=== PATIENT | female | born 2000 | race Caucasian/White ===

== ENCOUNTER 2021-06-08 14:08 | Outpatient (CLI) | payer BC, SELFPAY ==
[2021-06-08 19:09] LABS: Hemoglobin 15.5 g/dL (12.0-15.0); Mean Corpuscular HGB Conc 35.2 g/dl (32-36); Mean Corpuscular Hemoglobin 30.8 pg (26-34); Mean Corpuscular Volume 87.3 fl (80-100); Platelet Count Result 237 k/mm3 (150-375); Red Blood Count 5.04 M/mm3 (4.2-5.4); Red Cell Distribution Width 12.6 % (11.5-14.5); White Blood Count 5.3 K/mm3 (4.5-10.0)
[2021-06-08 19:19] LABS: Alanine Aminotransferase 20 U/L (4-35); Albumin Level 5.2 g/dL (3.5-5.1); Alkaline Phosphatase 69 U/L (38-126); Anion Gap 13 mmol/L (8-16); Aspartate Amino Transferase 28 U/L (14-36); Bilirubin,Total 0.9 mg/dL (0.2-1.3); Blood Urea Nitrogen 10 mg/dL (7-17); Calcium 9.4 mg/dL (8.4-10.2); Carbon Dioxide 23 mmol/L (22-30); Chloride 106 mmol/L (98-107); Cholesterol 158 mg/dL (0-200); Estimated Glomerular Filt Rate > 60; Glucose 100 mg/dL (65-110); HDL Direct 50 mg/dL; Potassium 3.7 mmol/L (3.4-5.0); Sodium 142 mmol/L (137-145); Triglycerides 145 mg/dL (<150)
[2021-06-08 19:30] LABS: LDL Cholesterol Direct 82 mg/dL
== END 2021-06-08 14:09 | disposition home or self-care (01) ==
LOC: ANHBWCLAB 14:10
PROVIDERS: PCP Family Medicine; Visit Provider Family Medicine
DX: K21.9 Gastro-esophageal reflux disease without esophagitis (principal); K59.00 Constipation, unspecified
CPT/HCPCS: 36415; 80053; 80061; 82607; 85027

== ENCOUNTER 2021-08-04 14:11 | Outpatient (CLI) | payer BC, SELFPAY ==
[2021-08-04 19:11] LABS: Basophils Percent Auto 0.5 % (0.2-1.2); Eosinophils Absolute Auto 0.1 K/mm3 (0-0.3); Eosinophils Percent Auto 0.8 % (0-4.4); Hematocrit 41.6 % (37.0-47.0); Hemoglobin 14.4 g/dL (12.0-15.0); Immature Granulocyte Absolute 0.02 K/mm3 (0.00-0.031); Immature Granulocyte Percent A 0.3 % (0-0.5); Lymphocytes Absolute Auto 1.95 K/mm3 (0.9-3.2); Lymphocytes Percent Auto 31.1 % (18.3-44.2); Mean Corpuscular HGB Conc 34.6 g/dl (32-36); Mean Corpuscular Hemoglobin 30.2 pg (26-34); Mean Corpuscular Volume 87.2 fl (80-100); Mean Platelet Volume 9.8 fl (7.4-10.4); Monocytes Absolute Auto 0.4 K/mm3 (0.1-0.6); Neutrophils Absolute Auto 3.8 K/mm3 (1.3-6.7); Neutrophils Percent Auto 60.3 % (45.5-73.1); Platelet Count Result 262 k/mm3 (150-375); Red Blood Count 4.77 M/mm3 (4.2-5.4); Red Cell Distribution Width 12.4 % (11.5-14.5); White Blood Count 6.3 K/mm3 (4.5-10.0)
[2021-08-06 04:06] LABS: H pylori Ag Stool Not Detected (Not Detected)
== END 2021-08-04 14:12 | disposition home or self-care (01) ==
LOC: ANHBWCLAB 14:12
PROVIDERS: PCP Family Medicine; Visit Provider Family Medicine
DX: F41.9 Anxiety disorder, unspecified (principal); K59.00 Constipation, unspecified; K21.9 Gastro-esophageal reflux disease without esophagitis; D75.1 Secondary polycythemia
CPT/HCPCS: 36415; 84443; 85025; 87338

== ENCOUNTER 2021-08-18 00:07 | Day surgery (SDC) | payer BC, SELFPAY ==
[2021-07-30 13:03] VITALS: BMI 23.4
--- NOTE | 2021-08-11 10:10 | PC.NURSE ---
Patient called spoke with mother Anastasiya and Informed of the new guidelines regarding screening for covid and illness prior to coming in for procedure and if necessary pt will be rapid swabbed on arrival to Endoscopy. Instructed to call prior to preparation of colonoscopy if having any symptoms or any member of household having a positive test in past 2 weeks. Anastasiya verbalizes understanding and will give patient Rhece the message.
[2021-08-18 06:18] VITALS: BP 134/90; PULSE 113; RESP 20; TEMP 36.4; O2SAT 99
[2021-08-18] MEDS: LACTATED RINGERS 1,000 ML 150 ML IV CONT (07:07)
--- NOTE | 2021-08-18 07:19 | P.PNAN_ITS ---
Anes - Initial Pre Proc Eval Procedure: Operation Date: 08/18/21 07:30 Proposed Procedures p Esophagogastroduodenoscopy & Colonoscopy - Tom Duran MD Date/Time: 08/18/21 07:19 Surgeon: Tom Duran MD Pre Op Diagnosis: GERD, rectal bleeding, constipation Patient Data Age: 20 Gender: F Height: 1.6 m Weight: 60.7 kg Last Vital Signs Temp 97.5 F L 08/18/21 06:18 Pulse 113 H 08/18/21 06:18 Resp 20 08/18/21 06:18 BP 134/90 08/18/21 06:18 Pulse Ox 99 08/18/21 06:18 Allergies Allergy/AdvReac Type Severity Reaction Status Date / Time No Known Allergies Allergy Verified 08/18/21 06:17 Home Medications Medication Instructions Recorded Confirmed Type sertraline 100 mg tablet 100 mg PO DAILY #90 tablet 07/06/21 08/10/21 Rx lactobacillus combination no.8 cell 07/30/21 08/10/21 History [Adult Probiotic] omeprazole 20 mg PO DAILY 07/30/21 08/10/21 History psyllium [Metamucil] 1 packet PO DAILY 07/30/21 08/10/21 History aluminum chloride in alcohol 6.25 1 applic TOPICAL QHS #60 ml 08/10/21 08/10/21 Rx % topical solution Patient hx anesthesia problems: none Family hx anesthesia problems: none Results Review: All pre-operative results and documents have been reviewed as part of the pre-operative evaluation. [facility] Past Medical History Medical History (Updated 06/09/21 @ 12:31 by Anup Headley MD) Constipation GERD (gastroesophageal reflux disease) Headache Social History Social History Alcohol intake: never Substance use: never Living arrangements: with family Spiritual care concerns: No Anes - Eval Final PreProcedure Day of Procedure 08/18/21 07:19 Patient weight: normal Heart: regular rate and rhythm Lungs: clear to auscultation Airway: Mallampati scale class II Neurological: alert and oriented Last oral intake: >/= 8 hours ASA classification: II Emergent: no Anesthetic plan: proceed Anesthesia type and monitoring: general GIVS and standard monitoring Results Review: All pre-operative results and documents have been reviewed as part of the pre-operative evaluation. Informed Consent: The patient's anesthetic plan and its attendant risks and benefits were discussed with the patient/family/POA. Questions were solicited and answers provided to the satisfaction of the patient/family/POA.
--- NOTE | 2021-08-18 07:28 | PM.HPGS ---
History of Present Illness History of Present Illness Consent: Risks, benefits, and alternatives have been discussed and questions answered. Patient agrees to proceed with procedure. Chief complaint: GERD, rectal bleeding, constipation Narrative: Filiberto Childress is a 20 year old female with chronic constipation, few times noted blood after wiping. Also GERD but resolved after using omeprazole, never had scopes. Review of Systems Constitutional: Constitutional: Denies headache(s) and Denies weakness Eyes: Eyes: Denies blurry vision ENT: Reports Normal hearing present, Denies headache(s) and Denies neck pain Cardiovascular: Cardiovascular: Denies chest pain and Denies dyspnea Respiratory: Respiratory: Denies dyspnea Gastrointestinal: Gastrointestinal: Reports no additional gastrointestinal complaints Genitourinary: Genitourinary: Denies dysuria Musculoskeletal: Musculoskeletal: Denies neck pain Integumentary/Breasts: Skin/Breast: Denies dry skin Neurologic: Reports Normal hearing present, Denies headache(s) and Denies weakness Psychiatric: Psychiatric: Denies anxiety Endocrine: Endocrine: Denies change in body appearance Hematologic/Lymphatic: Hematologic/Lymphatic: Denies easy bleeding Allergic/Immunologic: Allergic/Immunologic: Denies urticaria PMFSH Past Medical History Medical History (Updated 06/09/21 @ 12:31 by Anup Headley MD) Constipation GERD (gastroesophageal reflux disease) Headache Social History Social History Alcohol intake: never Substance use: never Living arrangements: with family Spiritual care concerns: No Meds Home Medications and Allergies Home Medications Medication Instructions Recorded Confirmed Type sertraline 100 mg tablet 100 mg PO DAILY #90 tablet 07/06/21 08/10/21 Rx lactobacillus combination no.8 cell 07/30/21 08/10/21 History [Adult Probiotic] omeprazole 20 mg PO DAILY 07/30/21 08/10/21 History psyllium [Metamucil] 1 packet PO DAILY 07/30/21 08/10/21 History aluminum chloride in alcohol 6.25 1 applic TOPICAL QHS #60 ml 08/10/21 08/10/21 Rx % topical solution Allergies Allergy/AdvReac Type Severity Reaction Status Date / Time No Known Allergies Allergy Verified 08/18/21 06:17 Vital Signs Vital Signs - 24 hr 08/18/21 06:18 Temperature 97.5 F L Pulse Rate 113 H Respiratory Rate 20 Blood Pressure 134/90 Pulse Oximetry 99 Exam Const: General: comfortable and no acute distress HENMT: General nose exam: Normal nares present Eyes: General: appearance normal, both eyes and all related structures Neck: Neck: no JVD Resp: Auscultation: clear to auscultation bilaterally Cardio: Rate: regular rate Rhythm: regular rhythm GI: Inspection: non-distended GI Palp: Yes Soft to palpation Skin: General skin exam: normal color Neuro: General: gait normal Speech: normal speech Extrem: General: normal to inspection Psych: Mental Status: mental status grossly normal Assessment and Plan Assessment and plan (1) GERD (gastroesophageal reflux disease): Code(s): K21.9 - Gastro-esophageal reflux disease without esophagitis Status: Acute Assessment and Plan: egd with bx, better with ppi (2) Constipation: Code(s): K59.00 - Constipation, unspecified Status: Acute Assessment and Plan: colonoscopy
--- NOTE | 2021-08-18 07:44 | SUR.OPER ---
egd ended at 737, colonoscopy start time 742.
[2021-08-18 07:57] VITALS: BP 100/72; PULSE 84; RESP 21; O2SAT 100
[2021-08-18 08:07] VITALS: BP 105/69; PULSE 89; RESP 20; O2SAT 100
[2021-08-18 08:17] VITALS: BP 120/79; PULSE 90; RESP 20; O2SAT 100
== END 2021-08-18 08:30 | disposition home or self-care (01) ==
PROVIDERS: PCP Family Medicine; Visit Provider Internal Medicine Gastroenterology
PROC: 0DJ08ZZ Inspection of Upper Intestinal Tract, Via Natural or Artificial Opening Endoscopic (ICD-10-PCS; CPT 43235; principal; 2021-08-18 07:30)
DX: K59.00 Constipation, unspecified (principal); K92.1 Melena; K63.89 Other specified diseases of intestine; K64.8 Other hemorrhoids; K21.9 Gastro-esophageal reflux disease without esophagitis
CPT/HCPCS: 45378; 43239; 88305; J2001; J2704; J7120

== ENCOUNTER 2021-11-10 12:02 | Outpatient (CLI) | payer BC, SELFPAY | END 2021-11-10 12:03 | disposition home or self-care (01) | LOC: ANHBWCLAB 12:03 | PROVIDERS: PCP Family Medicine; Visit Provider Family Medicine | DX: R63.5 Abnormal weight gain (principal) | CPT/HCPCS: 36415; 84443 ==

== ENCOUNTER 2023-09-11 15:09 | Emergency (ER) | payer OTHER, SELFPAY ==
[2023-09-11 15:20] VITALS: BP 124/88; PULSE 102; RESP 16; TEMP 37.3; O2SAT 99
--- NOTE | 2023-09-11 15:22 | ED.URI ---
HPI - URI/Sore Throat General Chief Complaint: Upper Respiratory Infection Stated Complaint: throat/aches Time Seen by Provider: 09/11/23 15:22 History of Present Illness HPI Narrative: 22-year-old female presented for complaint of sore throat, headache, and body aches. Onset yesterday. She also states she feels like wires are crossed in my body resulting in mild lightheadedness lasting about 1-2 hours at a time since yesterday. denies cough, shortness breath, wheezing, nausea, vomiting, fevers or chills. Related Data Allergies Allergy/AdvReac Type Severity Reaction Status Date / Time No Known Allergies Allergy Verified 03/14/23 16:00 Review of Systems Review of Systems: CONSTITUTIONAL: Denies body aches, fever, chills, or sweats. EYES: Denies visual changes, redness, or discharge. ENT: Reports sore throat Denies rhinorrhea, congestion, or otalgia. CARDIOVASCULAR: Denies chest pain, palpitations, or edema. RESPIRATORY: Denies dyspnea. GASTROINTESTINAL: Denies abdominal pain, nausea, vomiting, or diarrhea. SKIN: Denies rash, itching, or wounds. MUSCULOSKELETAL: Denies back pain, joint pain, or myalgia. NEUROLOGIC: Denies headache PMFSH Past Medical History Medical History Constipation GERD (gastroesophageal reflux disease) Headache Social History Social History Smoking status: Never smoker Alcohol intake: never Substance use: never Lack of Transportation: No Lack of Food: Never True Current Housing: I Have Housing Concerned About Future Housing: No Difficulty Paying Gas/Electric Bills: No Difficulty Paying for Meds: No Currently Unemployed: No Education: Bachelor's Degree Difficulty w/ Childcare or Family Care: No Living arrangements: with family Spiritual care concerns: No Exam Narrative: GENERAL: mildly ill-appearing, no acute distress. EYES: conjunctivae clear ENT: Mucous membranes moist. TMs pearly luna with normal light reflex bilaterally; no tragal tenderness. Oropharynx erythematous without lesions. Tonsils absent. No drooling, no hoarseness, no trismus, uvula midline. No tripod positioning, hot potato voice, or soft palate swelling. NECK: Supple. No lymphadenopathy CHEST: Clear to auscultation, breath sounds equal. No respiratory distress, speaks in full sentences. HEART: Regular rate and rhythm. No murmur heard. SKIN: Warm, dry, no rash. NEURO: Alert and oriented x3. Course Course Emergency Course: Patient is aware of diagnosis, understands and agrees to treatment plan. Anticipatory guidance given. Patient agrees to follow-up as directed and is aware of reasons to seek care at the emergency department. Portions of this record may have been created with voice recognition software Level of Care: Express Care Visit Vital Signs Vital signs: Vital Signs Temperature 99.2 F 09/11/23 15:20 Pulse Rate 102 H 09/11/23 15:20 Respiratory Rate 16 09/11/23 15:20 Blood Pressure 124/88 09/11/23 15:20 Pulse Oximetry 99 09/11/23 15:20 Oxygen Delivery Room Air 09/11/23 15:20 Temperature 99.2 F 09/11/23 15:20 Pulse Rate 102 H 09/11/23 15:20 Respiratory Rate 16 09/11/23 15:20 Blood Pressure 124/88 09/11/23 15:20 Pulse Oximetry 99 09/11/23 15:20 Oxygen Delivery Room Air 09/11/23 15:20 MDM - URI/Sore Throat MDM Narrative Medical decision making narrative: results of POS COVID, neg flu, and strep reviewed with pt. Advise supportive treatments. Patient is appropriate for outpatient treatment and follow-up. Differential Diagnosis Differential diagnosis: Likely upper respiratory infection, viral infection and pharyngitis Discharge Plan Discharge Clinical Impression: COVID-19 Patient Disposition: Home, Self-Care Condition: Stable Instructions: Antibiotic Form, COVID-19 (Coronavirus Disease
== END 2023-09-11 15:53 | disposition home or self-care (01) ==
PROVIDERS: Emergency Provider Nurse Practitioner Family; PCP Family Medicine
DX: U07.1 COVID-19 (principal); K21.9 Gastro-esophageal reflux disease without esophagitis
CPT/HCPCS: 87081; 87426; 87804; 87880; 99213; G0463

== ENCOUNTER 2023-11-21 09:07 | Outpatient (CLI) | payer OTHER, SELFPAY ==
[2023-11-21 20:18] LABS: Hemoglobin 13.4 g/dL (12.0-15.0); Mean Corpuscular HGB Conc 32.7 g/dl (32-36); Mean Corpuscular Hemoglobin 29.4 pg (26-34); Mean Corpuscular Volume 89.9 fl (80-100); Platelet Count Result 235 k/mm3 (150-375); Red Blood Count 4.56 M/mm3 (4.2-5.4); White Blood Count 4.9 K/mm3 (4.5-10.0)
[2023-11-21 20:22] LABS: Alanine Aminotransferase 10 U/L (6-35); Albumin Level 4.8 g/dL (3.5-5.1); Alkaline Phosphatase 58 U/L (38-126); Anion Gap 12 mmol/L (4-12); Aspartate Amino Transferase 31 U/L (14-36); Bilirubin,Total 0.4 mg/dL (0.2-1.3); Blood Urea Nitrogen 8 mg/dL (7-17); Calcium 9.3 mg/dL (8.4-10.2); Carbon Dioxide 25 mmol/L (22-30); Chloride 101 mmol/L (98-107); Cholesterol 236 mg/dL (0-200); Estimated Glomerular Filt Rate > 60; Glucose 86 mg/dL (65-110); HDL Direct 47 mg/dL; Sodium 138 mmol/L (137-145); Triglycerides 160 mg/dL (<150)
[2023-11-21 20:33] LABS: LDL Cholesterol Direct 142 mg/dL
== END 2023-11-21 09:08 | disposition home or self-care (01) ==
PROVIDERS: PCP Nurse Practitioner Adult Health; Visit Provider Nurse Practitioner Adult Health
DX: Z00.00 Encounter for general adult medical examination without abnormal findings (principal)
CPT/HCPCS: 36415; 80053; 80061; 84443; 85027

== ENCOUNTER 2024-12-17 15:39 | Outpatient (CLI) | payer OTHER, SELFPAY ==
--- OUTSIDE RECORDS SUMMARY | 2024-12-17 15:42 | XMS_ITS | Clinical Summary ---
Author Organization [facility] [place] [address] [facility] Address [address] [place] [address] Care Team Providers Care Puppet Maker Name Role Phone Radha Galeano MD Primary Care Pro vider Allergies No known active allergies Medications sertraline (ZOLOFT) 100 mg tablet 4 Active predniSONE (DELTASONE) 20 mg tablet Take 2 tablets (40 mg) by mouth daily 4 Active buPROPion XL (WELLBUTRIN XL) 150 mg 24 hr tablet 4 Active etonogestrel (NEXPLANON SUBDERM) Active etonogestrel (NEXPLANON SUBDERM) Nexplanon Active traMADoL (ULTRAM) 50 mg tablet Take 1 tablet every 6 hours by oral route as needed. Active Active Problems Problem Noted Date Diagnosed Date Abdominal pain 03/15/2024 Acute pharyngitis 03/15/2024 Acute suppurative otitis media 03/15/2024 Acute upper respiratory infection 03/15/2024 Allergic rhinitis 03/15/2024 Chronic sinusitis 03/15/2024 Contusion of knee 03/15/2024 Cough 03/15/2024 External hordeolum 03/15/2024 Fever 03/15/2024 Headache 03/15/2024 Left lower quadrant pain 03/15/2024 Local infection of skin and subcutaneous tissue 03/15/2024 Menorrhagia 03/15/2024 Motion sickness 03/15/2024 Pertussis 03/15/2024 Pneumonia 03/15/2024 Serous otitis media 03/15/2024 Streptococcal sore throat 03/15/2024 Viral disease 03/15/2024 Migraine headache 06/23/2012 Surgical History Surgery Date Site/Laterality Comments TONSILLECTOMY Tonsillectomy Medical History Medical History Date Comments Hx Other Medical Headache, migra ine Family History Medical History Relation Name Comments Diabetes type II Other 1 Family hist ory of Diabetes mellitus type 2; Heart disease Other 2 Family history of Heart problems; Relation Name Status Comments Other 1 Other 2 Social History Tobacco Use Types Packs/Day Years Used Date Smoking Tobacco: Never Smokeless Tobacco: Never Comments No Sex and Gender Information Value Date Recorded Sex Assigned at Not on file Legal Sex 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 Gender Identity Not on file Sexual Orientation Not on file Obstetrics History Last Filed Vital Signs Vital Sign Reading Time Taken Comments Blood Pressure 118/86 03/15/2024 4:21 PM SCRAPER LOADER OPERATOR Pulse 102 03/15/2024 4:21 PM SCRAPER LOADER OPERATOR Temperature 37.1 C (98.7 F) 03/15/2024 4:21 PM SCRAPER LOADER OPERATOR Respiratory Rate 16 03/15/2024 4:21 PM SCRAPER LOADER OPERATOR Oxygen Saturation 99% 03/15/2024 4:21 PM SCRAPER LOADER OPERATOR Inhaled Oxygen Concentration - - Weight 68 kg (150 lb) 03/15/2024 4:21 PM SCRAPER LOADER OPERATOR Height 160 cm (5' 3) 03/15/2024 4:21 PM SCRAPER LOADER OPERATOR Body Mass Index 26.57 03/15/2024 4:21 PM SCRAPER LOADER OPERATOR Plan of Treatment Health Maintenance Due Date Last Done Comments Cervical Cancer Screening 1999 Depression Screening 1999 Hepatitis C Screening 1999 Regular Well Visit/Exam 18-64 09/16/2017 DTaP/Tdap/Td Vaccine (7 - Td or Tdap) 09/25/2020 09/25/2010, 11/19/2004, 03/24/2001, Additional history exists Influenza Vaccine (#1) 2024 4, 02/06/2014, 03/09/2012 Hepatitis B Screening Completed 09/26/2000 , 03/18/2000, 1999 Pneumococcal vaccine <65 Aged Out 03/24/2001, 09/09 No longer eligible based on patient's age to complete this topic Varicella Vaccines Completed 09/25/2010, 12/07/2002 HPV Vaccines Completed 06/10/2014, 01/10, 10/26/2013 Insurance [facility] Care Teams Puppet Maker Relationship Specialty Start Date End Date Radha Galeano MD PCP - General 07/07/15
[2024-12-17 18:52] LABS: Alanine Aminotransferase 17 U/L (6-35); Albumin Level 5.0 g/dL (3.5-5.1); Alkaline Phosphatase 72 U/L (38-126); Anion Gap 12 mmol/L (4-12); Aspartate Amino Transferase 54 U/L (14-36); Bilirubin,Total 0.3 mg/dL (0.2-1.3); Blood Urea Nitrogen 10 mg/dL (7-17); Calcium 9.6 mg/dL (8.4-10.2); Carbon Dioxide 25 mmol/L (22-30); Chloride 102 mmol/L (98-107); Cholesterol 210 mg/dL (0-200); Estimated Glomerular Filt Rate > 60; Glucose 88 mg/dL (65-110); HDL Direct 55 mg/dL; Potassium 3.8 mmol/L (3.4-5.0); Sodium 139 mmol/L (137-145); Total Protein 8.8 g/dL (6.3-8.2); Triglycerides 132 mg/dL (<150)
== END 2024-12-17 15:40 | disposition home or self-care (01) ==
LOC: ANHBWCLAB 15:40
PROVIDERS: PCP Nurse Practitioner Adult Health; Visit Provider Nurse Practitioner Adult Health
DX: Z00.00 Encounter for general adult medical examination without abnormal findings (principal); Z13.9 Encounter for screening, unspecified
CPT/HCPCS: 36415; 80053; 80061